=== PATIENT | female | born 1960 | race Caucasian/White ===

== ENCOUNTER 2023-12-10 12:41 | Emergency (ER) | payer BC, SELFPAY ==
--- NOTE | ~2023-12-10 | XR_ITS ---
EXAMINATION: XR chest 2V DATE: 12/10/2023 13:29 INDICATION: Chest pain. Shortness of breath. TECHNIQUE: Frontal and lateral views of the chest were obtained. COMPARISON: None. FINDINGS: There is mild atelectasis at the lung bases. No pleural effusion or pneumothorax. The heart size is normal. Surgical clips in the right upper quadrant are likely from cholecystectomy. IMPRESSION: 1. Mild atelectasis at the lung bases. Reviewed, dictated and finalized at location A.
--- NOTE | ~2023-12-10 | CT_ITS ---
EXAMINATION: CT brain wo con DATE: 12/10/2023 14:53 INDICATION: neurological episodes (dizziness, tingling, numb) . TECHNIQUE: Computed tomography (CT) of the head was performed without intravenous contrast. The mA wa s adjusted according to patient size. Iterative reconstruction technique was employed. The dose-lengt h product was 605.33 mGy-cm. COMPARISON: None. FINDINGS: No acute intracranial hemorrhage or extra-axial fluid collection. No hydrocephalus, mass, or herniation. No acute ischemic infarct. Unremarkable dural venous sinus attenuation. No acute osseous abnormality. The aerated spaces are clear. IMPRESSION: No acute intracranial process. Reviewed, dictated and finalized at location K.
--- NOTE | 2023-12-10 12:53 | ECG_ITS ---
Test Date: 2023-12-10 16:27:15 Measurements Intervals [place] Rate: 62 P: 17 OR: 194 QRS: -17 QRSD: 94 T: 30 QT: 433 QTc: 441 Interpretive Statements SINUS RHYTHM No previous ECG available for comparison Electronically Signed On 12-10-2023 20:35:55 CDT by Mega Purcell M.D.
[2023-12-10 13:09] VITALS: BP 140/95; PULSE 73; RESP 22; TEMP 36.5; O2SAT 100
[2023-12-10 13:18] LABS: Basophils Absolute Auto 0.1 K/mm3 (0.0-0.1); Basophils Percent Auto 1.3 % (0.2-1.2); Eosinophils Absolute Auto 0.1 K/mm3 (0-0.3); Eosinophils Percent Auto 1.6 % (0-4.4); Hemoglobin 16.1 g/dL (12.0-15.0); Immature Granulocyte Absolute 0.02 K/mm3 (0.00-0.031); Immature Granulocyte Percent A 0.3 % (0-0.5); Lymphocytes Absolute Auto 2.66 K/mm3 (0.9-3.2); Lymphocytes Percent Auto 33.3 % (18.3-44.2); Mean Corpuscular HGB Conc 34.3 g/dl (32-36); Mean Corpuscular Hemoglobin 30.8 pg (26-34); Mean Platelet Volume 9.7 fl (7.4-10.4); Monocytes Absolute Auto 0.8 K/mm3 (0.1-0.6); Monocytes Percent Auto 9.9 % (2.6-8.5); Neutrophils Absolute Auto 4.3 K/mm3 (1.3-6.7); Neutrophils Percent Auto 53.6 % (45.5-73.1); Platelet Count Result 263 k/mm3 (150-375); Red Blood Count 5.22 M/mm3 (4.2-5.4); Red Cell Distribution Width 13.1 % (11.5-14.5)
[2023-12-10 13:30] LABS: Alanine Aminotransferase 25 U/L (6-35); Albumin Level 4.4 g/dL (3.5-5.1); Alkaline Phosphatase 72 U/L (38-126); Anion Gap 15 mmol/L (4-12); Aspartate Amino Transferase 28 U/L (14-36); Bilirubin,Total 0.5 mg/dL (0.2-1.3); Blood Urea Nitrogen 14 mg/dL (7-17); Calcium 9.8 mg/dL (8.4-10.2); Carbon Dioxide 18 mmol/L (22-30); Chloride 107 mmol/L (98-107); Estimated CRCL calculation 45 ml/min; Estimated Glomerular Filt Rate 50; Glucose 113 mg/dL (65-110); Lipase 71 U/L (23-300); Potassium 4.1 mmol/L (3.4-5.0); Sodium 140 mmol/L (137-145)
[2023-12-10 13:36] LABS: Partial Thromboplastin Time 28.3 Seconds (22.3-36.8); Prothrombin Time 13.9 Seconds (11.1-14.7)
[2023-12-10 13:41] LABS: Troponin I < 0.012 ng/mL (0.000-0.034)
--- NOTE | 2023-12-10 14:35 | PC.NURSE ---
Lab called to add on ordered labs.
[2023-12-10 15:02] LABS: CRP < 0.5 mg/dL (<1.0)
[2023-12-10 15:04] LABS: Beta-Hydroxybutyrate/Acetoacetate 0.13 mmol/L (0.02-0.27)
[2023-12-10 15:15] LABS: Erythrocyte Sedimentation Rate 7 mm/hr (0-20)
--- NOTE | 2023-12-10 15:15 | PC.NURSE ---
Pt reports 0/10 chest pain. Aspirin not administered d/t pt condition.
[2023-12-10] MEDS: SODIUM CHLORIDE 0.9% IV 1,000 ML 999 ML IV CONT (15:16)
[2023-12-10 15:25] LABS: Hemoglobin A1C 5.8 % (<5.7)
--- NOTE | 2023-12-10 15:47 | ED.CHESTPAIN ---
HPI - Chest Pain General Chief Complaint: Chest Pain Stated Complaint: chest pain Time Seen by Provider: 12/10/23 13:55 History of Present Illness HPI narrative: Patient is a 63-year-old female who presents to the ER with episodes of numbness and tingling. She reports she has had these episodes periodically for years. Over the past week pt has had multiple episodes where the tingling starts in her neck/ upper chest area and travels down to her hands and feet. Patient reports she can not feel anything in her body when she has episodes. She has no accompanying syncopal episodes but reports she needs to lay down when they happen and is so tired she physically can not get up. Patient reports she has a history high red blood cells and is being followed by Hematology. She also endorses a history of hypertension, CAD, and prediabetes but reports she does not believe that diabetes is an accurate diagnoses. Patient denies any numbness or tingling that has led incontinence, she denies any shortness of breath, or other signs/symptoms of illness. Related Data Allergies Allergy/AdvReac Type Severity Reaction Status Date / Time No Known Allergies Allergy Verified 12/10/23 13:21 Exam Narrative: GENERAL: Well appearing, well-nourished, non-toxic, in no acute distress. HEAD: Normocephalic, atraumatic. NECK: Supple. No adenopathy, no masses. RESPIRATORY: Airway patent, respirations nonlabored. Clear to auscultation bilaterally, no rales, rhonchi, wheezing. CARDIOVASCULAR: Regular rate and rhythm without murmurs, rubs, or gallops. Peripheral pulses 2+ and equal bilaterally. ABDOMINAL: Soft, nontender, nondistended, no hepatosplenomegaly. Normoactive BS. MUSCULOSKELETAL: Moves all extremities. Strength/ROM intact without gross deformities. SKIN: Warm, dry, normal color. No rashes. NEURO: A&O X3. Speech clear. Cranial nerves II-XII grossly intact. No ataxic movements. PSYCHIATRIC: Appropriate mood and affect. Normal interaction. Course Vital Signs Vital signs: Vital Signs Temperature 36.5 C 12/10/23 13:09 Pulse Rate 73 12/10/23 13:09 Respiratory Rate 22 H 12/10/23 13:09 Blood Pressure 140/95 H 12/10/23 13:09 Pulse Oximetry 100 12/10/23 13:09 Oxygen Delivery Room Air 12/10/23 13:09 Temperature 36.5 C 12/10/23 13:09 Pulse Rate 67 12/10/23 16:28 Respiratory Rate 16 12/10/23 16:28 Blood Pressure 132/87 12/10/23 16:28 Pulse Oximetry 100 12/10/23 16:28 Oxygen Delivery Room Air 12/10/23 13:15 MDM - Chest Pain MDM Narrative Medical decision making narrative: Patient is a 63-year-old female who presents to the ER with episodes of numbness and tingling. She reports she has had these episodes periodically for years. Over the past week pt has had multiple episodes where the tingling starts in her neck/ upper chest area and travels down to her hands and feet. Patient reports she can not feel anything in her body when she has episodes. She has no accompanying syncopal episodes but reports she needs to lay down when they happen and is so tired she physically can not get up. Patient reports she has a history high red blood cells and is being followed by Hematology. She also endorses a history of hypertension, CAD, and prediabetes but reports she does not believe that diabetes is an accurate diagnoses. Patient denies any numbness or tingling that has led incontinence, she denies any shortness of breath, or other signs/symptoms of illness. Patient's CBC indicates a hemoglobin of 16.1, monocytes of 9.9% and basophils 1.3% She reports her hemoglobin tends to run high. Patient's chemistry indicates a carbon dioxide of 18, anion gap of 15, a creatinine of 1.1, a GFR of 50, glucose of 113, an A1c of 5.8. She was given 1 L normal saline IV fluid to treat dehydration. Patient's head CT was unremarkable along with her chest x-ray. She was given her results and verbalized understanding of needing t
--- NOTE | 2023-12-10 16:10 | ECG_ITS ---
Test Date: 2023-12-10 12:55:43 Measurements Intervals [place] Rate: 74 P: 16 DC: 183 QRS: -14 QRSD: 92 T: 47 QT: 395 QTc: 439 Interpretive Statements SINUS RHYTHM No previous ECG available for comparison Electronically Signed On 12-11-2023 14:24:49 CDT by Jose A Del Rosario M.D.
[2023-12-10 16:28] VITALS: BP 132/87; PULSE 67; RESP 16; O2SAT 100
[2023-12-10 16:38] LABS: Troponin I < 0.012 ng/mL (0.000-0.034)
[2023-12-10 18:06] VITALS: BP 122/70; PULSE 70; RESP 16; O2SAT 97
== END 2023-12-10 18:10 | disposition home or self-care (01) ==
PROVIDERS: Emergency Provider Registered Nurse
DX: F41.9 Anxiety disorder, unspecified (principal); R73.9 Hyperglycemia, unspecified; I10 Essential (primary) hypertension; I25.10 Atherosclerotic heart disease of native coronary artery without angina pectoris; R73.03 Prediabetes; R71.8 Other abnormality of red blood cells
CPT/HCPCS: 36415; 70450; 71046; 80053; 82010; 83036; 83690; 84443; 84484; 85025; 85610; 85652; 85730; 86140; 93005; 96360; 99284; J7030

== ENCOUNTER 2023-12-12 08:06 | Outpatient (RCR) | payer BC, SELFPAY ==
[2023-12-12 08:14] VITALS: BMI 28.0
== END 2024-02-26 09:38 | disposition home or self-care (01) ==
LOC: ANHDMC 08:06
DX: R73.03 Prediabetes (principal); Z71.3 Dietary counseling and surveillance
CPT/HCPCS: 97802

== ENCOUNTER 2024-02-07 11:27 | Outpatient (CLI) | payer BC, SELFPAY ==
[2024-02-07 11:56] LABS: Basophils Absolute Auto 0.1 K/mm3 (0.0-0.1); Basophils Percent Auto 1.2 % (0.2-1.2); Eosinophils Absolute Auto 0.1 K/mm3 (0-0.3); Eosinophils Percent Auto 1.6 % (0-4.4); Hematocrit 48.6 % (37.0-47.0); Hemoglobin 15.6 g/dL (12.0-15.0); Immature Granulocyte Absolute 0.03 K/mm3 (0.00-0.031); Immature Granulocyte Percent A 0.4 % (0-0.5); Lymphocytes Absolute Auto 2.32 K/mm3 (0.9-3.2); Lymphocytes Percent Auto 31.4 % (18.3-44.2); Mean Corpuscular HGB Conc 32.1 g/dl (32-36); Mean Corpuscular Hemoglobin 30.1 pg (26-34); Mean Corpuscular Volume 93.6 fl (80-100); Mean Platelet Volume 9.4 fl (7.4-10.4); Monocytes Absolute Auto 0.6 K/mm3 (0.1-0.6); Monocytes Percent Auto 8.7 % (2.6-8.5); Neutrophils Absolute Auto 4.2 K/mm3 (1.3-6.7); Neutrophils Percent Auto 56.7 % (45.5-73.1); Platelet Count Result 266 k/mm3 (150-375); Red Blood Count 5.19 M/mm3 (4.2-5.4); Red Cell Distribution Width 13.2 % (11.5-14.5); White Blood Count 7.4 K/mm3 (4.5-10.0)
[2024-02-07 13:35] LABS: Alanine Aminotransferase 26 U/L (6-35); Albumin Level 4.4 g/dL (3.5-5.1); Alkaline Phosphatase 76 U/L (38-126); Anion Gap 5 mmol/L (4-12); Aspartate Amino Transferase 26 U/L (14-36); Bilirubin,Total 0.4 mg/dL (0.2-1.3); Blood Urea Nitrogen 15 mg/dL (7-17); Calcium 9.5 mg/dL (8.4-10.2); Carbon Dioxide 28 mmol/L (22-30); Chloride 106 mmol/L (98-107); Estimated Glomerular Filt Rate 45; Glucose 96 mg/dL (65-110); Potassium 4.8 mmol/L (3.4-5.0); Sodium 139 mmol/L (137-145)
[2024-02-09 14:49] LABS: Erythropoietin (EPO) 5.8 mIU/mL (2.6-18.5)
[2024-02-13 17:23] LABS: Block/Specimen ID NG; Clinical Indication POLYCYTHEMIA VERA; JAK2 V617F Mutation NOT DETECTED (NOT DETECTED); Specimen Source BLOOD
== END 2024-02-07 11:28 | disposition home or self-care (01) ==
LOC: ANHLAB 11:28
PROVIDERS: Visit Provider Internal Medicine Hematology & Oncology
DX: D45 Polycythemia vera (principal)
CPT/HCPCS: 36415; 80053; 81270; 82668; 85025

== ENCOUNTER 2024-03-22 09:01 | Outpatient (CLI) | payer BC, SELFPAY ==
--- NOTE | ~2024-03-22 | MM_ITS ---
EXAMINATION: MM screening [place]illon BI w rehana HISTORY: Screening mammogram, family history of breast cancer in her mother. TECHNIQUE: Craniocaudal and mediolateral oblique 3-D tomosynthesis images were obtained and synthetic 2-D images were generated. CAD analysis was submitted and interpreted. COMPARISON: No prior mammogram is available for comparison at this institution. BREAST PARENCHYMAL COMPOSITION:Not Dense. There are scattered areas of fibroglandular density. FINDINGS: No suspicious mass, calcification, or architectural distortion are identified in either danny ast to suggest malignancy. There has been no suspicious interval change. IMPRESSION: No mammographic evidence of malignancy. Recommend routine screening mammography in one year. BI-RADS Category 1: Negative Reviewed, dictated and finalized at location . ERY TECHNICIAN
== END 2024-03-22 09:02 | disposition home or self-care (01) ==
PROVIDERS: PCP Family Medicine; Visit Provider Family Medicine
DX: Z12.31 Encounter for screening mammogram for malignant neoplasm of breast (principal); Z80.3 Family history of malignant neoplasm of breast
CPT/HCPCS: 77063; 77067